=== PATIENT | female | born 1980 | race Caucasian/White ===

== ENCOUNTER 2020-06-06 15:16 | Inpatient (IN) | payer OTHER ==
[~2020-06-06] VITALS: Ht 172.7 cm; Wt 109.6 kg
[2020-06-06] MEDS ORDERED: CEFDINIR300 MG PO (16:57)
[2020-06-06] MEDS ORDERED: ONDANSETRON ODT8 MG PO (17:02)
--- NOTE | 2020-06-06 22:30 | NUR ---
PT TO ROOM 107 FROM ED VIA STRETCHER WITH DARWIN KELLY. REPORT RECEIVED AT BED SIDE. PT ALERT AND ORIENTED. ABLE TO TRANSFER SELF TO BED. DENIES PAIN OR NAUSEA. VS AND DAILY WEIGHT OBTAINED. PT AFEBRILE. PLANER TAILER IN ROOM FOR ADMISSION.
[2020-06-06] MEDS ORDERED: XYZAL5 MG PO (22:38)
[2020-06-06] MEDS ORDERED: VALTREX500 MG PO (22:39)
--- NOTE | 2020-06-06 23:40 | NUR ---
ASSESSMENT COMPLETE. SCHEDULED MEDS ADMINISTERED PER EMAR. IVF INFUSING PER ORDER. PT DENIES PAIN OR NAUSEA. SANDWICH BOX PROVIDED PER REQUEST. PT ORIENTED TO ROOM AND NURSE CALL LIGHT. ENCOURAGED TO CALL FOR ASSISTANCE WHEN OUT OF BED, PT STATES UNDERSTANDING. DENIES QUESTIONS OR CONCERNS AT THIS TIME. CALL LIGHT IN REACH.
--- NOTE | 2020-06-07 02:31 | NUR ---
PT UP TO BR WITH SBA. DENIES DIZZINESS. BACK TO BED, MICHAEL WELL. REPORTS "FEELING A LITTLE WEAK, BUT NOT TERRIBLE". C/O SLIGHT HEADACHE. VS AND I&O COMPLETE. BP NOTED TO BE LOW. MANUAL BP COLLECTED BY MUSIC COPYIST. RESULTS CALLED TO DR. BROWN. NEW TELEPHONE ORDERS RECEIVED VERIFIED WITH READ BACK METHOD. IV NS BOLUS INFUSING PER ORDER.
--- NOTE | 2020-06-07 03:43 | NUR ---
DR. BROWN UPDATED ON PT'S BLOOD PRESSURE. NO NEW ORDERS RECEIVED. PRN ADMINISTERED FOR C/O 5/10 HEADACHE. PT WITH NO FURTHER NEEDS AT THIS TIME.
--- NOTE | 2020-06-07 07:00 | NUR ---
ASSESSMENT COMPLETE. PT UP TO BR WITH MINIMAL SBA. DENIES DIZZINESS. GAIT STEADY. BACK TO BED, MICHAEL WELL. REPORTS HEADACHE HAS IMPROVED. DENIES NAUSEA. MENU PROVIDED TO ORDER BREAKFAST. NO FURTHER NEEDS. CALL LIGHT IN REACH.
--- NOTE | 2020-06-07 13:49 | NUR ---
PATIENT UP TO BATHROOM AND BACK TO BED, SBA. JUDITH CONSTANTINO, RN NOTIFIED. PATIENT REQUESTING PAIN MEDS. CALL LIGHT IN REACH. NO FURTER NEEDS AT THIS TIME.
--- NOTE | 2020-06-07 14:40 | NUR ---
PT REPORTS INCREASE IN RIGHT LOWER BACK PAIN, ALSO HEADACHE6/10, TYLENOL 500MG GIVEN FOR 102.5 TEMPERATURE. TORDOL 30MG IV GIVEN AT THIS TIME FOR PAIN. PT SPOUSE AT BEDSIDE.
--- NOTE | 2020-06-07 14:50 | NUR ---
LAB IN TO DRAW BLOOD CULTURES.
--- NOTE | 2020-06-07 15:46 | NUR ---
OFFERED PATIENT SHOWER THIS MORNING AND PATIENT SAID MAYBE LATER DEPENDING HOW SHE FELT. MADE SURE ORAL CARE WAS AVALIABLE AND IT WAS. PATIENTS CAME TO VISIT AT THIS TIME AND COMPLAINED THAT THE PATIENT HAD NO CARE DONE AND WANTED HELP DO A BED BATH FOR PATIENT. THIS TECHNICAL STAFF ASSISTANT GOT ALL SUPPLIES NEEDED FOR A BED BATH AND FOR A REAL SHOWER, AGAIN MADE SURE ALL SUPPLIES, NEW GOWN AND SOCKS, AND ORAL CARE WAS IN ROOM. SHOWED WHERE EVERYTHING WAS AND OFFERED TO HELP WITH SHOWER, PATIENT SAID SHE WOULD LET ME KNOW WHEN SHE WAS READY AND IF THEY NEEDED HELP. CALL LIGHT IS IN REACH AND THEY STATE NO FURTHER NEEDS AT THIS TIME.
--- NOTE | 2020-06-07 16:35 | NUR ---
DR BROWN IN TO SEE PT, DECREASED IVF TO 100ML HR, PT UP TO SHOWER AT THIS TIME.
--- NOTE | 2020-06-07 18:07 | NUR ---
PATIENT SHOWERED WITH HELP OF . PATIENT NOW BACK IN BED, AT BEDSIDE. B\P A LITTLE LOW, RN NOTIFIED. CALL LIGHT IN REACH. NO FURTHER NEEDS AT THIS TIME.
--- NOTE | 2020-06-07 19:32 | NUR ---
SPOKE WITH DR BROWN ABOUT LOW B/P, ASKED THAT WE CALL IF SYSTOLIC <90 AND MAP<65.
--- NOTE | 2020-06-07 19:51 | NUR ---
DIRECTOR OF CRITICAL CARE ROUNDING NOTE. WARM BLANKET PROVIDED TO PT AND HER , ROSALIA. PT REPORTS PAIN TO HER R FLANK. PRIMARY RN NOTIFIED. PT UPDATED RE: PLAN FOR NOTIFYING MD ABOUT BLOOD PRESSURES OVERNIGHT. EDUCATION PROVIDED. PT DENIES QUESTIONS OR CONCERNS AT THIS TIME. CALL LIGHT WITH IN REACH. WHITE BOARD UPDATED.
--- NOTE | 2020-06-07 20:50 | NUR ---
EVENING ASSESSMENT COMPLETE. SCHEDULED MEDS ADMINISTERED PER EMAR. PRN ADMINISTERED FOR HEADACHE/RIGHT FLANK PAIN. PT DENIES NAUSEA. VS WITHIN PARAMETERS. PT AFEBRILE. IVF INFUSING PER ORDER. SIGNIFICANT OTHER IN ROOM. NO FURTHER NEEDS AT THIS TIME. CALL LIGHT IN REACH.
--- NOTE | 2020-06-07 22:30 | NUR ---
PT LAST BM 06/04, C/O FEELING MILDY CONSTIPATED. STOOL SOFTENERS ORDERED AND ADMINISTERED. SANDWICH BOX PROVIDED.
--- NOTE | 2020-06-08 01:19 | NUR ---
CALL LIGHT ANSWERED. NEW BAG IVF INFUSING PER ORDER. PRN ADMINISTERED FOR 5/10 RIGHT FLANK PAIN.
--- NOTE | 2020-06-08 02:52 | NUR ---
PT RESTING IN BED WITH EYES CLOSED, NAD. IVF INFUSING. SPOUSE IN ROOM SLEEPING ON COUCH.
--- NOTE | 2020-06-08 04:52 | NUR ---
CALL LIGHT ANSWERED. PRN ADMINISTERED FOR RIGHT FLANK/BACK PAIN. UP TO BR WITH MINIMAL SBA. GAIT STEADY. PT DENIES FEELING DIZZY, WEAK, OR LIGHT HEADED WITH AMB. PT TO AMB ONE LAP AROUND UNIT WITH SPOUSE. BACK TO BED, MICHAEL WELL. VS AND I&O COMPLETE. NO FURTHER NEEDS AT THIS TIME. CALL LIGHT IN REACH.
--- NOTE | 2020-06-08 08:05 | NUR ---
REPORT RECEIVED. PT IN BED AWAKE. REPORTS MILD HEADACHE. AT BEDSIDE. D5LR INFUSING @ 100. CALL LIGHT IN REACH.
--- NOTE | 2020-06-08 09:35 | NUR ---
PT DECLINES WANTING TYLENOL AT THIS TIME, SHE DOES REPORT HAVING MILD HEADACHE AT THIS TIME, SHE SAID SHE WANTS TO WAIT TO SEE IF SHE HAS ANY FEVERS AND NOT TAKE TYLENOL EDUCATION PROVIDED THAT IF SHE IS HAVING PAIN AND IS UNCOMFORTABLE IT IS OK TO TAKE TYLENOL OR TORDOL FOR MORE SIGNIFICANT PAIN. SHE SAID OK, IF IT GETS WORSE SHE WILL LET UP KNOW.
--- NOTE | 2020-06-08 09:45 | NUR ---
PATIENT IN BED RESTING. PATIENT SAID MAYBE LATER TO SHOWER. CALL LIGHT IN REACH. NO FURTHER NEEDS AT THIS TIME.
--- NOTE | 2020-06-08 11:11 | NUR ---
PT OUT AMBULATING HALLS INDEPENDENTLY. . REPORTS HEADAHCE AT 08/26.
--- NOTE | 2020-06-08 13:00 | NUR ---
ROUNDED ON PT. PT REPORTING CHILLS AND SOME NAUSEA AFTER LUNCH. REFUSES NAUSEA MEDS, TEMP OF 98.5 ORALLY. WARM PACK FOR RIGHT FLANK PAIN PROVIDED. PT REFUSINGTYLENOL AT THIS TIME. WARM BLANKET FOR HEADACHE. DENEIS FURTHER NEEDS.
--- NOTE | 2020-06-08 14:00 | NUR ---
ROUNDED ON PT TO ASSESS FOR FEVER. ORAL TEMP OF 98.4. PT WILLING TO TAKE TYLENOL NOW FOR HEADACHE AND FLANK PAIN 5/10.
--- NOTE | 2020-06-08 14:14 | NUR ---
PT ALERT, ORIENTED AND HAS BEEN UP AMBULATING IN [place]. PT SITTING IN CHAIR, A ND MENTIONED THAT IF HER TEMP STAYS DOWN, SHE MAY BE DC'D TODAY. PT SEEMS ACCEPTING IF SHE NEEDS TO STAY ANOTHER DAY. GAVE PT Matthieu ORTEGAPOST AND HAD PRAYER WITH HER. WILL FOLLOW NEEDED
--- NOTE | 2020-06-08 14:24 | NUR ---
PATIENT IN BED RESTING, AND RN IN ROOM. CALL LIGHT IN REACH. NO FURTHER NEEDS AT THIS TIME.
--- NOTE | 2020-06-08 15:01 | NUR ---
ROUNDED WITH DR BROWN. PLAN OF CARE DISCUSSED. QUESTION ANSWERED.
--- NOTE | 2020-06-08 17:00 | NUR ---
PT OUT AMBUALTING HALLS WITH AT SIDE. REPORTS HEADACHE AND FLANK PAIN IS IMPROVED.
--- NOTE | 2020-06-08 18:45 | NUR ---
PATIENT UP TO SHOWER FROM CHAIR, IND. IN ROOM. LINENS CHANGED. NEW GOWN AND SOCKS PROVIDED. CALL LIGHT IN REACH. NO FURTHER NEEDS AT THIS TIME.
--- NOTE | 2020-06-08 18:48 | NUR ---
PT UP SHOWERING NOW. SALINE LOCKED.
--- NOTE | 2020-06-08 19:30 | NUR ---
REPORT RECEIVED FROM DAY SHIFT RN. PT LYING IN BED ALERT AND ORIENTED. IVF INFUSING. DENIES NEEDS AT THIS TIME. WHITE BOARD UPDATED. CALL LIGHT IN REACH.
--- NOTE | 2020-06-08 22:30 | NUR ---
EVENING ASSESSMENT COMPLETE. SCHEDULED MEDS ADMINISTERED PER EMAR. PT DENIES PAIN OR NAUSEA AT THIS TIME. REPORTS PRESSURE IN HER RIGHT EAR THAT SHE DISCUSSED WITH MD DURING THEIR VISIT. VS TAKEN. BP NOTED TO BE LOW BUT WITHIN PARAMETERS. IV SL. ENCOURAGED PO INTAKE. SPOUSE IN ROOM. PT DENIES QUESTIONS OR CONCERNS. CALL LIGHT IN REACH.
--- NOTE | 2020-06-09 02:37 | NUR ---
PT RESTING IN BED WITH EYES CLOSED, NAD.
--- NOTE | 2020-06-09 05:21 | NUR ---
VS AND I&O COMPLETE. PT REMAINS AFEBRILE. BP WNL. PRN ADMINISTERED FOR 4/10 LOWER BACK/LEFT EAR/HEADACHE PAIN. FRESH WATER PROVIDED. PT DENIES FURTHER NEEDS. CALL LIGHT IN REACH.
--- NOTE | 2020-06-09 05:24 | NUR ---
PT AMB IN [place] WITH SPOUSE. GAIT STEADY, MICHAEL WELL.
--- NOTE | 2020-06-09 07:48 | NUR ---
REPORT RECEIVED. PT SITTING UP IN CHAIR. PAIN REPORTED 07/26. CALL LIGHT IN REACH. DENEIS NEEDS.
[2020-06-09] MEDS ORDERED: CEPHALEXIN500 MG PO (09:35)
--- NOTE | 2020-06-09 11:18 | NUR ---
ASSESSMENT COMPLETED. VITALS DONE AND STABLE. DISCHARGE INSTRUCTIONS PROVIDED. NO QUESTIONS.
--- NOTE | 2020-06-09 13:50 | NUR ---
PT DRESSED, STANDING IN RM WAITING FOR DC. HAS RECEIVED INSTRUCTIONS-FEELS ALL QUESTIONS ARE ANSWERED. GAVE BLESSING
== END 2020-06-09 11:22 | disposition home or self-care (01) | DRG 690 ==
LOC: ED 15:16 → MS 21:55
PROVIDERS: ADMIT Internal Medicine; ATTEND Internal Medicine
DX: N10 Acute pyelonephritis (principal); B96.20 Unspecified Escherichia coli [E. coli] as the cause of diseases classified elsewhere; Z20.828 Contact with and (suspected) exposure to other viral communicable diseases; I49.8 Other specified cardiac arrhythmias; Z88.0 Allergy status to penicillin; Z86.73 Personal history of transient ischemic attack (TIA), and cerebral infarction without residual deficits; Z79.899 Other long term (current) drug therapy; Z79.82 Long term (current) use of aspirin
CPT/HCPCS: 36415; 74176; 76770; 80053; 81001; 83605; 84703; 85025; 87088; 96365; 96375; 99285-25; C9803; J0696; J1650; J1885; J2405; J7030; J7040; J7121; U0003

== ENCOUNTER 2025-05-06 05:57 | Emergency (ER) | payer OTHER ==
[~2025-05-06] VITALS: Ht 172.7 cm; Wt 110.0 kg
[~2025-05-06 05:57] MED LIST: CEFDINIR300 MG PO; CEPHALEXIN500 MG PO; LEVSIN0.125 MG PO; ONDANSETRON ODT8 MG PO; VALTREX500 MG PO; XYZAL5 MG PO
--- OUTSIDE RECORDS SUMMARY | 2025-05-06 06:03 | XMS ---
PreManage Notification: ILIANA YEAGER Security [employer] Events No recent Security Events currently on file CRITERIA MET - [facility] - 2 Visits in 30 Days CARE PROVIDERS -, [facility] Dentist: Kiln Rem[facility] PHONE: [phone] -Maty- Dentist: Kiln Remover [facility] PHONE: [phone] [facility] PHONE: [phone] Adryan has no Care Guidelines for this patient. David VISIT COUNT (12 MO.) 1 RADHA [place] [facility] TOTAL 2 NOTE: Visits indicate total known visits. ED/UCC VISIT TRACKING (12 MO.) 05/06/2025 05:57 RADHA [place] TYPE: Emergency COMPLAINT: - ABDOMINAL PAIN 04/11/2025 09:45 [facility] TYPE: Emergency DIAGNOSES: - Other fatigue - FATIGUE BODY PAIN SWEATS INPATIENT VISIT TRACKING (12 MO.) No inpatient visits to display in this time frame [email or web address]
[2025-05-06 06:18] LABS: BASOPHILS 0.4 % (0.1-1.2); EOSINOPHILS 3.1 % (0.7-5.8); LYMPHOCYTES 33.7 % (19.3-51.7); MCH 29.2 PG (25.6-32.2); MCHC 34.2 g/dL (32.2-35.5); MCV 85.4 fL (79.4-94.8); MONOCYTES 7.8 % (4.7-12.5); NEUTROPHILS 54.7 % (34.0-71.1); RBC 4.31 M/uL (3.93-5.22)
[2025-05-06] MEDS ORDERED: SODIUM CHLORIDE 0.9% 500 ML IV PRN (06:30)
[2025-05-06] MEDS ORDERED: MORPHINE SULFATE 4 MG/ML VIAL IV ONE (06:30)
[2025-05-06 06:36] LABS: ALT (SGPT) 24.0 U/L (14-59); AST (SGOT) 13.0 U/L (15-37); GLOMERULAR FILTRATION RATE,EST 105.0 mL/min (>60); PROTEIN, TOTAL 7.0 g/dL (6.4-8.2); UREA NITROGEN 13.0 mg/dL (7-18)
[2025-05-06 07:11] LABS: BLOOD/HGB, URINE SMALL (Negative); KETONE, URINE NEGATIVE (Negative); LEUK ESTERASE, URINE NEGATIVE (negative); NITRITE, URINE NEGATIVE (negative)
[2025-05-06] MEDS ORDERED: PERCOCET 5-3251 EACH PO (07:16)
[2025-05-06] MEDS ORDERED: ONDANSETRON ODT8 MG PO (07:16)
[2025-05-06] MEDS ORDERED: FLOMAX0.4 MG PO (07:16)
[2025-05-06 07:18] LABS: EPITHELIAL CELLS, URINE SQUAMOUS 1+ /lpf (0-1+)
[2025-05-06 07:19] LABS: BACTERIA, URINE NONE SEEN /hpf (negative); CASTS, URINE NONE SEEN \\lpf; CRYSTALS, URINE NONE SEEN (0-1+); REFLEX CULTURE, URINE No (No)
[2025-05-06] MEDS ORDERED: TAMSULOSIN HCL 0.4 MG CAP PO ONE (07:30)
[2025-05-06] MEDS ORDERED: ONDANSETRON 4 MG HOME.PACK SL ONE (07:30)
[2025-05-06] MEDS ORDERED: OXYCODONE/ACETAMINOPHEN 1 TAB HOME.PACK PO ONE (07:30)
[2025-05-06 08:01] VITALS: BP 117/64
== END 2025-05-06 07:56 | disposition home or self-care (01) ==
LOC: ED 05:57
PROVIDERS: Family Medicine
DX: N13.2 Hydronephrosis with renal and ureteral calculous obstruction (principal); Z79.899 Other long term (current) drug therapy; Z88.0 Allergy status to penicillin; Z87.891 Personal history of nicotine dependence
CPT/HCPCS: 36415; 74176; 80053; 81001; 83690; 83735; 85025; 99284-25; A9270; J7040